=== PATIENT | male | born 1945 | race Caucasian/White ===

== ENCOUNTER → 2019-11-20 10:13 | Outpatient (CLI) | payer MEDICARE, BC ==
[2015-10-19 08:36] VITALS: BMI 33.9
[~2019-11-20 10:13] MED LIST: ACTOS30 MG PO; ASPIRIN EC81 M1 PO; JANUMET 50-1,001 TAB PO; LANTUS INSULIN10 ML SC; LOTREL 5-40 MG1 EACH PO; PRAVACHOL20 MG PO; SYNTHROID75 MCG PO
== END | disposition home or self-care (01) ==
LOC: D.HCCARDIO 10:13 → D.HCCECHO 11:00
PROVIDERS: ATTEND Internal Medicine Cardiovascular Disease
DX: I34.0 Nonrheumatic mitral (valve) insufficiency (principal); R06.00 Dyspnea, unspecified

== ENCOUNTER 2019-12-04 06:36 | Outpatient (CLI) | payer MEDICARE, BC ==
[~2019-12-04] VITALS: Ht 167.6 cm; Wt 107.2 kg
--- NOTE | ~2019-12-04 | HEMODYNAMI ---
PATIENT:DOMINGA BOLAÑOS MEDICAL RECORD: [id number] : 47 LOCATION:[facility] ADMISSION DATE: 12/04/19 Generatedon:12/04/20198:58 Patient name: DOMINGA BOLAÑOS Patient #: [id number] SSN: [id number] : 1945 Date of study: 12/04/2019 Page: Of Hemodynamic Procedure Report Patient Data Patient Demographics Procedure consent was obtained First Name: DOMINGA Gender: Male Last Name: MAMI : 1945 Middle Initial: D Age: 74 year(s) Patient #: [id number] Race: SSN: [id number] Additional ID: [id number] Contact details Address: [address] [place] [address] State: [place] City: [facility] Zip code: [address] Admission Admission Data Admission Date: 12/04/2019 Admission Time: 6:36 Arrival Date: 12/04/2019 Arrival Time: 0:00 Admit Source: Other Insurance Payor: Medicare [place] #: [id number] Height (in.): 66.14 BSA: 2.15 (m2) Height (cm.): 168 BMI: 37.91 (kg/m2) Weight (lbs.): 235.9 Weight (kg.): 107 Lab Results Lab Result Date: 12/04/2019 Lab Result Time: 0:00 Biochemistry Name Units Result Min Max BUN mg/dl 16 --(---*)-- 7 18 Creatinine mg/dl 1.3 --(---*)-- 0.6 1.3 eGFR ml/min 57 *-(----)-- 90 120 NONAFRICAN CBC Name Units Result Min Max Hemoglobin g/dl 14.3 --(*---)-- 13.5 17.5 Procedure Procedure Types Cath Procedure Diagnostic Procedure LHC LHC w/Coronaries Sedation Charges Moderate Sedation up to 30 minutes Procedure Description Procedure Date Procedure Date: 12/04/2019 Procedure Start Time: 8:43 Procedure End Time: 8:55 Procedure Staff Name Function Burak Rendon MD Performing Physician Gogo Mayfield RT Monitor Reta Hampton RT Scrub Radha Tovar RN Nurse Indication Angina Procedure Data Cath Procedure Fluoroscopy Diagnostic fluoroscopy Total fluoroscopy Time: 3 time: 3 min min Diagnostic fluoroscopy Total fluoroscopy dose: 749 dose: 749 mGy mGy Contrast Material Contrast Material Type Amount (ml) Isovue 300 47 Entry Location Entry Primary Successful Side Size Upsize Upsize Entry Closure Delong ccessful Closure Location (Fr) 1 (Fr) 2 (Fr) Remarks Device Remarks Radial Right 6 Fr Mechanical artery Short Compression Estimated blood loss: 5 ml Diagnostic catheters Device Type Used For End Catheter Placement DIAGNOSTIC Bull 110cm Multi-vessel 5Fr catheter ([id number]) Angiography DIAGNOSTIC AR1 MOD 5Fr Right Coronary catheter ([id number]) Angiography Procedure Complications No complications Procedure Medications Medication Administration Route Dosage 0.9% NaCl I.V. 100 ml/hr Oxygen etCO2 Nasal cannula 2 l/min Lidocaine 2% added to field 20 Heparin Flush Bag added to field 2 bags (1000units/500ml NS) Radial Cocktail added to field 1 syringe (Verapamil 2mg/Nitro 400mcg/Heparin 1500units) Versed I.V. 2 mg Fentanyl I.V. 50 mcg Versed I.V. 2 mg Fentanyl I.V. 50 mcg Hemodynamics Rest BSA: 2.15 (m2) HGB: 14.3 (g/dl) O2 Consumption: Estimated: 249.39 (ml/min) O2 Co nsumption indexed: Estimated:116 (ml/min/m) Heart Rate: 72 (bpm) Pressure Samples Time Site Value (mmHg) Purpose Heart Use Rate(bpm) 8:46 LV 130/11,21 Snapshot 88 8:47 AO 122/64(87) Pullback 75 8:47 LV 140/13,24 Pullback 75 Gradients Valve Time Site 1 Site 2 Mean SEP/DFP Peak To Heart Use (mmHg) (sec/min) Peak Rate (mmHg) (bpm) Aortic 8:47 LV AO 19 21 18 75 140/13,24 122/64(87) Calculations Valve P-P Mean Valve Index Valve Source Name Gradient Area Flow (cm2) Aortic 18 19 18 19 Snapshots Pre Cath Intra NCS Post Cath Vital Signs Time Heart Resp SPO2 etCO2 NIBP (mmHg) Rhythm Pain Sedation Rate (ipm) (%) (mmHg) Status Level (bpm) 8:22:08 69 15 96 35.9 Measuring NSR 0 (11) 10(A) , No pain 8:22:20 70 16 96 38.1 179/87(134) NSR 0 (11) 10(A) , No pain 8:26:42 69 12 97 44.9 170/81(134) NSR 0 (11) 10(A) , No pain 8:31:09 64 12 97 41.9 146/75(108) NSR 0 (11) 10(A) , No pain 8:35:29 67 10 94 30.7 130/74(109) NSR 0 (11) 10(A) , No pain 8:39:45 66 11 96 12.7 143/66(103) NSR 0 (11) 9(A) , No pain 8:44:05 65 19 96 17.9 143/64(91) NSR 0 (11) 9(A) , No pain 8:48:25 68 14 98 28.4 123/69(101) NSR 0 (11) 9(A) , No pain 8:52:35 63 12 97 41.2 138/73(113) NSR 0 (11) 10(A) , No pain Medications Time Medication Route Dose Verified Delivered Reason Notes Ef fectiveness by by 8:20:28 0.9% NaCl I.V. 100 Burak Radha used for ml/hr Justice Tovar special procedure technologist 8:20:36 Oxygen etCO2 2 l/min Burak Radha used for Nasal Justice Tovar procedure cannula RN 8:20:40 Lidocaine 2% added 20ml Burak Burak for local to vial Justice Rendon MD anesthetic field 8:20:45 Heparin Flush added 2 bags Burak Burak used for Bag to Justice Rendon MD procedure (1000units/500ml field NS) 8:21:09 Radial Cocktail added 1 Burak Burak used for (Verapamil to syringe Justice Rendon MD procedure 2mg/Nitro field 400mcg/Heparin 1500units) 8:28:30 Versed I.V. 2 mg Burak Radha for Justice Tovar sedation RN 8:28:39 Fentanyl I.V. 50 mcg Burak Radha for Justice Tovar sedation RN 8:33:31 Versed I.V. 2 mg Burak Radha for Justice Tovar sedation RN 8:33:37 Fentanyl I.V. 50 mcg Burak Radha for Justice Tovar sedation executive sous chef Log Time Note 7:44:26 Informed consent obtained and on chart 7:48:49 Admit Source: Other 7:49:06 Arrival Date: 12/04/2019 12:00:00 AM 7:49:48 Insurance Payor : Medicare 7:53:54 Patient Height : 66.14 inches 7:54:07 Patient Weight : 235.9 lbs 7:56:55 Lab Result : eGFR NONAFRICAN 57 ml/min 7:56:55 Lab Result : Hemoglobin 14.3 g/dl 7:56:55 Lab Result : BUN 16 mg/dl 7:56:55 Lab Result : Creatinine 1.3 mg/dl 7:59:32 Diagnostic Cath Status : Elective 7:59:50 Indication : Angina 7:59:54 Reta SMITH(R) sent for patient. Start room use. 7:59:55 Time tracking: Regular hours (M-F 7:00 - 5:00) 7:59:59 Plan of Care:Hemodynamics will remain stable., Cardiac rhythm will remain stable., Comfort level will be maintained., Respiratory function will remain adequate., Patient/ family verbilizes understanding of procedure., Procedure tolerated without complication., Recovers from procedure without complications.. 8:00:10 Risk of Mortality: 0.1 8:00:13 Risk of blood transfusion: 0.5 8:00:18 Risk of BRAXTON: 1.0 8:02:14 3a) 45-59 Moderately reduced kidney function. 8:02:54 Maximum allowable contrast dose (3.7 X eGFR X 0.75)158 ml. 8:20:19 Vital chart was started 8:20:28 0.9% NaCl 100 ml/hr I.V. was administered by Radha Tovar RN; used for procedure; Verbal order read back and verified. 8:20:36 Oxygen 2 l/min etCO2 Nasal cannula was administered by Radha Tovar RN; used for procedure; Verbal order read back and verified. 8:20:40 Lidocaine 2% 20ml vial added to field was administered by Burak Rendon MD; for local anesthetic; Verbal order read back and verified. 8:20:45 Heparin Flush Bag (1000units/500ml NS) 2 bags added to field was administered by Burak Rendon MD; used for procedure; Verbal order read back and verified. 8:21:09 Radial Cocktail (Verapamil 2mg/Nitro 400mcg/Heparin 1500units) 1 syringe added to field was administered by Burak Rendon MD; used for procedure; Verbal order read back and verified. 8:25:48 Patient received from Pre/Post Procedure Room to CCL 2 Alert and oriented. Tansferred to table in Supine position. 8:25:49 Warm blankets applied, and manda hugger turned on for patient comfort. 8:25:49 Correct patient and procedure confirmed by team. 8:25:50 Baseline sample Acquired. 8:25:50 ECG and BP/O2 sat monitors applied to patient. 8:25:56 Rhythm: sinus rhythm 8:25:58 Full Disclosure recording started 8:26:01 H&P Date Dictated: 12/04/2019 Within 30 days and on chart., H&P Addendum completed by physician on day of procedure. (MUST COMPLETE FOR ALL OUTPATIENTS). 8:26:04 Pre-procedure instructions explained to patient. 8:26:05 Pre-op teaching completed and patient verbalized understanding. 8:26:12 Family in patients room. 8:26:14 Patient NPO since Midnight. 8:26:15 Is the patient allergic to Iodine/contrast media? No. 8:26:16 Was the patient premedicated? Yes 8:26:20 Is patient on blood thinner?No 8:26:22 Patient diabetic? Yes. 8:26:23 If diabetic: On Metformin? No 8:26:25 Previous problem with sedation/anesthesia? No ? 8:26:27 Snore? Yes 8:26:28 Sleep apnea? No 8:26:29 Deviated septum? No 8:26:35 Opens mouth fully? Yes 8:26:35 Sticks out tongue? Yes 8:26:38 Airway obstruction? No ? 8:26:46 Dentures? Yes in tight 8:26:49 Pre procedure: right dorsailis pedis pulse 2+ Normal; easily identifiable; not easily obliterated 8:26:51 Pre procedure: left dorsailis pedis pulse 2+ Normal; easily identifiable; not easily obliterated 8:26:53 Patient pain scale 0/10 ?. 8:26:59 IV patent on arrival in left forearm with 0.9% NaCl at [facility]. 8:27:02 Lab results completed and on chart. 8:27:06 Right Radial & Right Groin area was prepped with chlora-prep and draped in sterile fashion 8:27:07 Alarms reviewed by R. N. 8:27:08 Sharps counted by scrub and verified by R.N. 8:27:09 Physician arrived 8:27:09 --------ALL STOP TIME OUT------ 8:27:10 Final Timeout: patient, procedure, and site verified with staff and physician. All members of the team are in agreement. 8:27:12 Right Radial & Right Groin site verified by team. 8:27:15 Fire Safety Assessment: A--An alcohol-based skin anteseptic being used preoperatively., C--Open oxygen or nitrous oxide is being used., D--An ESU, laser, or fiber-optic light is being used. 8:27:18 Physical assessment completed. ASA score P 2 - A patient with mild systemic disease as per Burak Rendon MD. 8:27:22 Sedation plan: IV Moderate Sedation Medication:Versed, Fentanyl 8:27:25 Use device set Radial Dx or PCI 8:27:26 ACIST Syringe (20425) opened to sterile field. 8:27:26 Medline Cath Pack ([id number]) opened to sterile field. 8:27:27 Bag Decanter () opened to sterile field. 8:27:27 ACIST Hand Control (40984) opened to sterile field. 8:27:28 ACIST Manifold (52087) opened to sterile field. 8:27:28 Tegaderm 4 x 4 (1626W) opened to sterile field. 8:27:28 MBrace Wrist Support ([id number]) opened to sterile field. 8:27:29 NEEDLE Cook 21G 4cm Radial ([id number]) opened to sterile field. 8:27:31 SHEATH 6FR RAIN ([id number]) opened to sterile field. 8:27:32 EMERALD Guide Wire (984-726) opened to sterile field. 8:28:30 Versed 2 mg I.V. was administered by Radha Tovar RN; for sedation; Verbal order read back and verified. 8:28:39 Fentanyl 50 mcg I.V. was administered by Radha Tovar RN; for sedation; Verbal order read back and verified. 8:33:31 Versed 2 mg I.V. was administered by Radha Tovar RN; for sedation; Verbal order read back and verified. 8:33:37 Fentanyl 50 mcg I.V. was administered by Radha Tovar RN; for sedation; Verbal order read back and verified. 8:43:42 Procedure started. 8:43:47 Local anesthetic to right radial artery with Lidocaine 2% by Burak Rendon MD.INITIAL ACCESS ONLY 8:44:29 A 6 Fr Short sheath was inserted into the Right Radial artery 8:45:31 A DIAGNOSTIC Bull 110cm 5Fr catheter ([id number]) was advanced over the wire and used for Multi-vessel Angiography. 8:46:53 LV hemodynamics recorded. 8:46:54 LV gram done using AMAYA 8:46:56 Injector settings: Ml/sec: 5, Volume: 15, 8:47:30 EF : 55 % 8:48:27 LCA angiography performed. 8:48:30 Injector settings: Ml/sec: 3, Volume: 6, 8:51:12 Catheter removed. 8:52:04 A DIAGNOSTIC AR1 MOD 5Fr catheter ([id number]) was advanced over the wire and used for Right Coronary Angiography. 8:52:51 RCA angiography performed. 8:53:00 Injector settings: Ml/sec: 3, Volume: 6, 8:53:08 ACCDominant side:Co-Dominant 8:53:15 Catheter removed. 8:53:37 TR BAND Large ([id number]) opened to sterile field. 8:53:49 Sheath removed intact; hemostasis achieved with Mechanical Compression to the Right Radial artery. 8:53:57 Procedure ended.(Physican Out) 8:54:07 Fluoroscopy time 03.00 minutes. 8:54:11 Fluoroscopy dose: 749 mGy 8:54:11 Flurop Dose total: 749 8:54:16 Dose Area Product 82789 mGy/cm. 8:54:35 Contrast amount:Isovue 300 47ml. 8:54:38 Maximum allowable dose exceeded? No. 8:54:38 Sharps counted by scrub and verified by R.N. 8:54:44 [place] band inflated with 10cc of air. 8:54:45 Insertion/operative site no bleeding no hematoma. 8:54:49 Post right radial artery:stable 8:54:51 Post Procedure Pulses reassessed and unchanged 8:54:54 Post procedure rhythm: unchanged. 8:54:56 Estimated blood loss: 5 ml 8:54:57 Post procedure instruction explained to patient.Patient verbalizes understanding. 8:54:58 Patient needs reinforcement of post procedure teaching. 8:55:12 Procedure type changed to Cath procedure, Diagnostic procedure, LHC, C w/Coronaries, Sedation Charges, Moderate Sedation up to 30 minutes 8:55:13 Procedure and supply charges have been captured, reviewed, submitted and are correct. 8:55:17 Procedure Complication : No complications 8:55:19 Vital chart was stopped 8:55:22 [facility] Findings: mild to moderate CAD (<70%) 8:55:24 Operative report dictated upon procedure completion. 8:55:24 See physician's report for complete and final results. 8:55:26 Report given to Pre/Post Procedure Room. 8:55:29 Patient transfered to Pre/Post Procedure Room with Stretcher. 8:55:31 Procedure ended. 8:55:31 Full Disclosure recording stopped 8:55:49 End room use (Document Last) 8:58:04 End room use (Document Last) 8:58:26 End room use (Document Last) Device Usage Item Name Manufacture Quantity Catalog Hospital Part Current Minima l Lot# / Number Charge Number Stock Stock Serial# Code ACIST Acist 1 30965 378761 036864 813464 20 Syringe Medical (56267) Systems Inc Medline Medline 1 [id number] 283860 44650 083319 5 Cath Pack ([id number]) Bag Microtek 1 703996 23442 224298 5 Decanter Medical Inc. () ACIST Hand Acist 1 66809 444996 994975 175983 5 Control Medical (18063) Systems Inc ACIST Acist 1 80097 046590 156718 378103 5 Manifold Medical (99203) Systems Inc Tegaderm 4 3M 1 1626W 802669 136772 935547 5 x 4 (1626W) MBrace Advanced 1 140-0250-00 702058 64100 579506 5 Wrist Vascular Support Dynamics ([id number]) NEEDLE Cook Cook Medical 1 [id number] 949824 085703 182365 5 21G 4cm Radial (V59574) SHEATH 6FR Cardinal 1 0867116 030644 0438628 511529 5 RAIN Health (3236968) EMERALD Cardinal 1 193-807 938237 117279 182569 5 Guide Wire Health (100-268) DIAGNOSTIC Terumo 1 40-5023 449039 158709 997888 5 Bull 110cm 5Fr catheter (041549) DIAGNOSTIC Cardinal 1 [id number] 400350 381655 042781 15 AR1 MOD 5Fr Health catheter (119524I) TR BAND Terumo 1 [id number] 730558 820297 178953 40 Large ([id number]) Signature Audit [place] Stage Time Signature Unsigned Intra-Procedure 12/04/2019 Gogo Mayfield 8:58:04 AM RT(R) Intra-Procedure 12/04/2019 Radha Tovar 8:58:26 AM RN Intra-Procedure 12/04/2019 Burak Rendon MD 8:58:49 AM Signatures Performing Physician : Signature : Burak Rendon MD Date : Time : Monitor : Gogo Mayfield RT Signature : Date : Time : Nurse : Radha Tovar RN Signature : Date : Time : [facility] [address] [place] [address]
[2019-12-04] MEDS ORDERED: ALBUTEROL SULF8.5 GM INH (07:03)
[2019-12-04] MEDS ORDERED: GLIMEPIRIDE4 MG PO (07:04)
[2019-12-04] MEDS ORDERED: LOTENSIN HCT 21 EACH PO (07:05)
[2019-12-04 07:08] VITALS: BP 191/83; Ht 167.6 cm; Wt 107.2 kg
[2019-12-04 07:19] LABS: BASOPHILS 0.5 % (0-2); EOSINOPHILS 3.3 % (0-7); HEMATOCRIT 42.4 % (42.0-54.0); HEMOGLOBIN 14.3 g/dL (13.5-17.5); IMMATURE GRANULOCYTES 0.4 % (0-5); LYMPHOCYTES 28.1 % (15-50); MCH 31.5 pg (26.0-34.0); MCHC 33.7 g/dL (31.0-37.0); MCV 93.4 fL (80.0-100.0); MEAN PLATELET VOLUME 10.9 fL (7.4-10.4); MONOCYTES 9.5 % (2-11); NEUTROPHILS 58.2 % (40-80); RBC 4.54 10x6/uL (4.20-6.10); RDW 14.2 % (11.5-14.5); WBC 5.7 10x3/uL (4.8-10.8)
[2019-12-04 07:20] LABS: PLATELET COUNT 262 10x3/uL (130-400)
[2019-12-04 07:35] LABS: ANION GAP 12.7 mmol/L (8-16); CALCIUM 8.6 mg/dL (8.5-10.1); CARBON DIOXIDE 29.1 mmol/L (21.0-32.0); CREATININE - SERUM 1.3 mg/dL (0.6-1.3); LDL-HDL RATIO 2.2 ratio (1.5-3.5); POTASSIUM - SERUM 3.8 mmol/L (3.5-5.1)
--- NOTE | 2019-12-04 09:08 | NUR ---
PT RECEIVED TO ROOM VIA STRETCHER FOR RECOVERY. PT AWAKE BUT DROWSY, DENIES PAIN OR DISCOMFORT. IV PATENT INFUSING VIA ORDERS TO L ARM. PT PLACED ON CARDIAC MONITORS AND O2 AT 2L/NC. HR NSR RATE 59, BP 142/72, RR 11, SAT 96. R WRIST W TR BAND AND IMMOBILIZER IN PLACE. DRESSING CDI NO BLEEDING OR S/S HEMATOMA NOTED. ARM PINK AND WARM, CAP REFILL BRISK. PT INSTRUCTED NOT TO USE ARM. CALL LIGHT IN REACH AND AT BEDSIDE.
--- NOTE | 2019-12-04 09:31 | NUR ---
PT DOING WELL, DENIES PAIN OR NAUSEA. APPLE JUICE GIVEN PER REQUEST. TR BAND AND IMMOBILIZER IN PLACE, DRESSING CDI NO S/S HEMATOMA NOTED. HR 53, BP 148/66, SAT 97. CALL LIGHT IN REACH, REMAINS AT BS.
--- NOTE | 2019-12-04 10:10 | NUR ---
3CC AIR REMOVED FROM Z BAND W SMALL AMOUNT OF BLEEDING, 1CC AIR PUT BACK IN. NO BLEEDING NOTED. ARM PINK AND WARM, CAP REFILL BRISK. VSS. PT TOLERATED SANDWICH AND DRINK W/O NAUSE. DENIES PAIN OR NEEDS. CALL LIGHT IN REACH
--- NOTE | 2019-12-04 10:36 | NUR ---
2 ADD'L CC AIR REMOVED FROM TR BAND, NO BLEEDING NOTED. VSS. CALL LIGHT IN REACH
--- NOTE | 2019-12-04 10:46 | NUR ---
2 CC AIR REMOVED FROM TR BAND, NO BLEEDING NOTED.
--- NOTE | 2019-12-04 11:00 | NUR ---
IV REMOVED W CATH INTACT, REMAINING AIR REMOVED FROM TR BAND W/O BLEEDING NOTED. MONITORS REMOVED AND PT UP TO DRESS FOR DISCHARGE. 1110 TR BAND REMOVED, 2X2 AND TEGADERM DRESSING APPLIED. NO S/S HEMATOMA. DISCHARGE INSTRUCTIONS REVIEWED W PT AND , BOTH VERBALIZED UNDERSTANDING.
--- NOTE | 2019-12-04 11:16 | NUR ---
PT TO BR VIA WC, VOIDING W/O DIFFICULITY. PT DISCHARGED VIA WC TO WAITING IN PRIVATE VEHICLE. PT HAD ALL BELONGINGS AND DISCHARGE INFORMATION
== END 2019-12-04 11:20 | disposition home or self-care (01) ==
LOC: D.CATH 06:36
PROVIDERS: ATTEND Internal Medicine Cardiovascular Disease
DX: I20.9 Angina pectoris, unspecified (principal); R94.39 Abnormal result of other cardiovascular function study; I10 Essential (primary) hypertension; E78.5 Hyperlipidemia, unspecified; I51.7 Cardiomegaly